=== PATIENT | female | born 1965 | race Caucasian/White ===

== ENCOUNTER 2016-09-30 01:38 | Emergency (ER) | payer BC ==
[2016-09-30 03:21] LABS: PLATELET COUNT 249 x10^3mcL (130-400); RED CELL DISTRIBUTION WIDTH 12.6 % (11.5-14.5)
[2016-09-30 03:25] LABS: UA SPECIFIC GRAVITY 1.015 (1.005-1.035); microscopic required? YES; urine erythrocyte 2+ (NEGATIVE)
[2016-09-30 03:25] LABS: BASOPHIL % 5.8 % (0-2)
[2016-09-30 03:33] LABS: ALBUMIN 3.7 g/dL (3.4-5.0); ALKALINE PHOSPHATASE 95 U/L (46-116); ALT/SGPT 57 U/L (14-59); AMYLASE 61 U/L (25-115); AST/SGOT 25 U/L (15-37); BILIRUBIN TOTAL 0.4 mg/dL (0.20-1.00); CALCIUM 8.8 mg/dL (8.5-10.1); CHLORIDE SERUM 108 mmol/L (98-107); CREATININE SERUM 0.7 mg/dL (0.6-1.0); GFR1 > 60 mL/min; GLUCOSE SERUM 113 mg/dL (74-106); LIPASE 214 IU/L (73-393); POTASSIUM SERUM 3.5 mmol/L (3.5-5.1); SODIUM SERUM 145 mmol/L (136-145); TOTAL PROTEIN, SERUM 7.1 g/dL (6.4-8.2)
[2016-09-30 06:14] VITALS: BP 126/84
== END 2016-09-30 06:14 | disposition home or self-care (01) ==
LOC: ED 01:38
PROVIDERS: Emergency Medicine
DX: N39.0 Urinary tract infection, site not specified (principal); J45.909 Unspecified asthma, uncomplicated

== ENCOUNTER 2017-09-15 12:07 | Emergency (ER) | payer BC ==
[~2017-09-15] VITALS: Ht 137.2 cm; Wt 63.5 kg
[2017-09-15 12:14] VITALS: Ht 137.2 cm; Wt 63.5 kg
[2017-09-15 13:13] LABS: BASOPHIL % 0.4 % (0-2); PLATELET COUNT 213 x10^3mcL (130-400); RED CELL DISTRIBUTION WIDTH 13.4 % (11.5-14.5)
[2017-09-15 13:23] LABS: CALCIUM 8.4 mg/dL (8.5-10.1); CARBON DIOXIDE 25.8 mmol/L (21-32); CHLORIDE SERUM 106 mmol/L (98-107); CREATININE SERUM 0.5 mg/dL (0.6-1.0); GFR1 > 60 mL/min; GLUCOSE SERUM 83 mg/dL (74-106); POTASSIUM SERUM 3.5 mmol/L (3.5-5.1); SODIUM SERUM 139 mmol/L (136-145)
[2017-09-15 13:28] LABS: ALBUMIN 3.7 g/dL (3.4-5.0); ALKALINE PHOSPHATASE 87 U/L (46-116); ALT/SGPT 47 U/L (14-59); AMYLASE 61 U/L (25-115); AST/SGOT 26 U/L (15-37); LIPASE 182 IU/L (73-393); TOTAL PROTEIN, SERUM 7.4 g/dL (6.4-8.2)
[2017-09-15 15:28] VITALS: BP 144/77
== END 2017-09-15 15:33 | disposition home or self-care (01) ==
LOC: ED 12:07
PROVIDERS: Emergency Medicine
DX: R10.32 Left lower quadrant pain (principal); J45.909 Unspecified asthma, uncomplicated
CPT/HCPCS: J2270; J2405; J7030

== ENCOUNTER 2018-11-12 16:49 | Emergency (ER) | payer BC ==
[~2018-11-12] VITALS: Ht 137.2 cm; Wt 68.9 kg
[2018-11-12 16:54] VITALS: Ht 137.2 cm; Wt 68.9 kg
[2018-11-12 17:09] LABS: BASOPHIL % 0.6 % (0-2); PLATELET COUNT 229 x10^3mcL (130-400); RED CELL DISTRIBUTION WIDTH 12.8 % (11.5-14.5)
[2018-11-12 17:17] LABS: CALCIUM 8.5 mg/dL (8.5-10.1); CARBON DIOXIDE 29.2 mmol/L (21-32); CHLORIDE SERUM 104 mmol/L (98-107); CREATININE SERUM 0.6 mg/dL (0.6-1.0); GFR1 > 60 mL/min; GLUCOSE SERUM 89 mg/dL (74-106); POTASSIUM SERUM 3.4 mmol/L (3.5-5.1); SODIUM SERUM 141 mmol/L (136-145)
[2018-11-12 17:22] LABS: ALBUMIN 3.8 g/dL (3.4-5.0); ALKALINE PHOSPHATASE 99 U/L (46-116); ALT/SGPT 61 U/L (14-59); AST/SGOT 24 U/L (15-37); BILIRUBIN TOTAL 0.7 mg/dL (0.20-1.00); TOTAL PROTEIN, SERUM 7.5 g/dL (6.4-8.2)
[2018-11-12 18:47] VITALS: BP 148/87
== END 2018-11-12 18:47 | disposition home or self-care (01) ==
LOC: ED 16:49
DX: K64.5 Perianal venous thrombosis (principal); J45.909 Unspecified asthma, uncomplicated
CPT/HCPCS: 36415